=== PATIENT | male | born 2000 | race Caucasian/White ===

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

== ENCOUNTER 2019-01-12 20:59 | Emergency (ER) | payer OTHER ==
[~2019-01-12] VITALS: Ht 177.8 cm; Wt 72.6 kg
[2019-01-12 21:51] LABS: ABSOLUTE NEUTROPHILS 4.4 thou/uL (1.4-8.2); EOSINOPHILS 1.4 % (0.0-3.0); HEMATOCRIT 46.3 % (42.0-52.0); HEMOGLOBIN 16.2 gm/dL (14.0-18.0); LYMPHOCYTES 36.1 % (24.0-44.0); MCH 32.6 pg (26.0-34.0); MCV 93.2 fL (80.0-100.0); MONOCYTES 5.2 % (1.0-8.0); PLATELET COUNT 268 thou/uL (150-400); POLYS 56.3 % (36.0-66.0); RBC 4.97 mil/uL (4.50-6.00); RDW 12.7 % (10.5-14.5); WBC 7.8 thou/uL (4.0-11.0)
[2019-01-12] MEDS ORDERED: HUMALOG100 UNIT/1 SUBQ (21:51)
[2019-01-12 21:57] LABS: CALCIUM 9.4 mg/dL (8.5-10.1); CREATININE 0.9 mg/dL (0.7-1.3); POTASSIUM 3.3 mmol/L (3.5-5.1)
[2019-01-12 22:03] LABS: TOTAL BILIRUBIN 0.4 mg/dL (<0.1-1.0)
[2019-01-12 22:21] VITALS: BP 123/77
--- NOTE | 2019-01-14 16:49 | EKG ---
[address] [address] [place] [address] ELECTROCARDIOGRAM REPORT Name: MILENAMARCELLO SOPHIA Room #: DEP RAGINI Mccormack#: [id number] Admission: 01/12/19 Attend Phys: Discharge: 01/12/19 Date of : [birth year] Report #: [id number] THIS REPORT FOR: //name// [facility] ED Test Date: 2019-01-12 Test Time: 21:17:01 Pat Name: MARCELLO ABBOTT Department: Room: Gender: Referral Nurse: : 2000 Requested By: Juan Sosa Order Number: [id number] MD: Carrington Dahl Measurements Intervals [place] Rate: 84 P: 87 WV: 146 QRS: 76 QRSD: 89 T: 44 QT: 352 QTc: 417 Interpretive Statements Sinus rhythm RSR' in V1 or V2, probably normal variant No previous ECG available for comparison Electronically Signed On 01-14-2019 16:49:06 [employer] by Carrington Dahl [email or web address] <ELECTRONICALLY SIGNED> By: Carrington Dahl MD, [facility] 01/14/19 [id number] Carrington Dahl MD, FACC /EPI
== END 2019-01-12 22:28 | disposition home or self-care (01) ==
LOC: ER 20:59
PROVIDERS: Emergency Medicine
DX: E10.65 Type 1 diabetes mellitus with hyperglycemia (principal); R55 Syncope and collapse; M25.562 Pain in left knee; J45.909 Unspecified asthma, uncomplicated; F07.81 Postconcussional syndrome; F90.9 Attention-deficit hyperactivity disorder, unspecified type

== ENCOUNTER 2019-05-11 16:18 | Inpatient (IN) | payer OTHER ==
[~2019-05-11] VITALS: Ht 180.3 cm; Wt 73.0 kg
[2019-05-11] VITALS (9 sets, daily range): BP systolic 102–148; BP diastolic 42–92
[~2019-05-11 16:18] MED LIST changes: +HUMALOG100 UNIT/1 SUBQ
[2019-05-11] MEDS ORDERED: TRESIBA100 UNIT/1 SUBQ (16:40)
[2019-05-11 16:58] LABS: ABSOLUTE NEUTROPHILS 2.9 thou/uL (1.4-8.2); BASOPHILS 0.7 % (0.0-2.0); EOSINOPHILS 1.2 % (0.0-3.0); HEMATOCRIT 48.4 % (42.0-52.0); HEMOGLOBIN 16.5 gm/dL (14.0-18.0); LYMPHOCYTES 45.3 % (24.0-44.0); MCH 31.5 pg (26.0-34.0); MCHC 34.1 g/dL (28.0-37.0); MCV 92.5 fL (80.0-100.0); MONOCYTES 5.2 % (1.0-8.0); PLATELET COUNT 266 thou/uL (150-400); POLYS 47.6 % (36.0-66.0); RBC 5.23 mil/uL (4.50-6.00); RDW 12.1 % (10.5-14.5); WBC 6.1 thou/uL (4.0-11.0)
[2019-05-11 17:09] LABS: CALCIUM 8.7 mg/dL (8.5-10.1); CREATININE 1.2 mg/dL (0.7-1.3)
[2019-05-11 17:15] LABS: TOTAL BILIRUBIN 0.5 mg/dL (<0.1-1.0); TOTAL PROTEIN 7.7 g/dL (6.4-8.2)
[2019-05-11 17:21] LABS: HCO3 10.3 mmol/L (22.0-26.0); PCO2 VENOUS 26.9 mmHg (41.0-51.0); PO2 VENOUS 52.8 mmHg (35.0-45.0)
[2019-05-11 17:30] LABS: URINE BLOOD TRACE (Negative); URINE CLARITY CLEAR; URINE COLOR YELLOW; URINE GLUCOSE-RANDOM* 2+ (Negative); URINE KETONES 3+ (Negative); URINE LEUKOCYTES-REFLEX NEGATIVE (Negative); URINE NITRITE-REFLEX NEGATIVE (Negative); URINE PROTEIN (DIPSTICK) TRACE (Negative); URINE SPECIFIC GRAVITY >= 1.030 (1.005-1.035); URINE UROBILINOGEN 0.2 E.U./dl (0.2-1.0)
[2019-05-11 17:37] LABS: CALCIUM 8.9 mg/dL (8.5-10.1); CREATININE 1.2 mg/dL (0.7-1.3)
[2019-05-11 17:39] LABS: ICTOTEST (BILI CONFIRMATORY) Negative (Negative); URINE BILIRUBIN NEGATIVE (Negative)
[2019-05-11 17:41] LABS: MAGNESIUM 1.5 mg/dL (1.8-2.4); PHOSPHORUS 2.4 mg/dL (2.5-4.9)
--- NOTE | 2019-05-11 19:20 | NUR ---
PATIENT ARRIVED TO UNIT BY ED NURSE AND STUDENT. PATIENT WALKED TO BED. POTASSIUM GOING AND FLUIDS GOING WIDE OPEN PER ED DR ORDERS. DR. WAYNE PAGED FOR DKA ORDERS. ENDOCRINE CONSULTED. PATIENT GLUCOSE IS 129 AT THIS TIME. FAMILY EDUCATED ABPUT ICU PROTOCOLS AND RULES. FAMILY EXPRESSING UNDERSTANDING. REPORT GIVEN TO PROCUREMENT SPECIALIST.
[2019-05-11 21:35] LABS: CALCIUM 7.5 mg/dL (8.5-10.1); CREATININE 0.9 mg/dL (0.7-1.3); MAGNESIUM 1.6 mg/dL (1.8-2.4); PHOSPHORUS 1.4 mg/dL (2.5-4.9); POTASSIUM 3.1 mmol/L (3.5-5.1)
[2019-05-12] VITALS (8 sets, daily range): BP systolic 110–125; BP diastolic 54–80
[2019-05-12 01:24] LABS: HEMATOCRIT 40.8 % (42.0-52.0); MCH 31.1 pg (26.0-34.0); MCHC 34.2 g/dL (28.0-37.0); MCV 90.8 fL (80.0-100.0); RBC 4.49 mil/uL (4.50-6.00); RDW 12.2 % (10.5-14.5); WBC 5.6 thou/uL (4.0-11.0)
[2019-05-12 01:36] LABS: ALBUMIN 2.7 g/dL (3.4-5.0); CALCIUM 6.9 mg/dL (8.5-10.1); CREATININE 0.9 mg/dL (0.7-1.3); MAGNESIUM 1.8 mg/dL (1.8-2.4); POTASSIUM 3.1 mmol/L (3.5-5.1)
[2019-05-12 06:09] LABS: ALBUMIN 2.9 g/dL (3.4-5.0); CALCIUM 7.1 mg/dL (8.5-10.1); CREATININE 0.8 mg/dL (0.7-1.3); MAGNESIUM 1.8 mg/dL (1.8-2.4); PHOSPHORUS 2.1 mg/dL (2.5-4.9); POTASSIUM 3.6 mmol/L (3.5-5.1)
--- NOTE | 2019-05-12 08:20 | NUR ---
chart review, cm consulted. pt up in bed with mom sherice and his sig other at bedside. intro to cm and dcp. pt reported independent, no medical equip. has dm supplies at home, going to start working soon."/pt. per mom " just moved for tx and going to have to change insurance, in process of getting new endocrine dr and medical dr. he will need scripts for his insulin and medication so can refill before he will be out of insurance for little bit and don't want to run out of his medication"/sherice. will cont following as needed for dc needs.
--- NOTE | 2019-05-12 09:12 | NUR ---
DR. FISHER AT BEDSIDE SPEAKING WITH PATIENT AND MOTHER ABOUT POC.
--- NOTE | 2019-05-12 20:44 | NUR ---
Received patient from ICU this afternoon, transferred to room safely. A+Ox4. On room air. Vital signs stable. On carb controlled diet- tolerating well; no nausea, no vomiting and no abdominal pain noted. On blood sugar monitoring- taken and recorded accordingly, with sliding scale insulin prescribed. Up ad urszula, independent with ADLs. No skin issues. With SL at R AC and L AC. IVF infused on L AC as ordered. Pt visited by friend this afternoon. No complaints of pain made, able to walk around the hallway. To continue monitoring patient.
[2019-05-13 00:08] LABS: GLYCOHEMOGLOBIN (HGB A1C) 11.7 % (4.8-5.6)
--- NOTE | 2019-05-13 03:59 | NUR ---
PATIENT AOX4 MAKES NEEDS KNOWN. PATIENT DENIED PAIN OR DISCOMFORT. PATIENT AMBULATES WITH STEADY GAITS. PATIENT IN BED ASLEEP AT THIS TIME BREATHING REGULAR AND UNLABOURED.
[2019-05-13 07:57] VITALS: BP 125/82
--- NOTE | 2019-05-13 08:08 | HC ---
[facility] [place] [address] CONSULTATION Name: MARCELLO ABBOTT Room #: 455-P [facility] [place] M.R.#: [id number] Admission: 05/11/19 Attend Phys: Josiah Capps MD Discharge: Date of : 89 Report #: [id number] THIS REPORT FOR: cc: JHONATHAN Katz family physician/PCP JHONATHAN Katz family physician/PCP Lior Francois MD ~ CC: Josiah RING physician/PCP DATE OF SERVICE: 05/12/2019 ENDOCRINE CONSULTATION NOTE CONSULTING PHYSICIAN: Dr. Capps. REASON FOR CONSULTATION: DKA, uncontrolled type 1 diabetes mellitus. HISTORY OF PRESENT ILLNESS: This is a 18-year-old male patient whose medical background is significant for type 1 diabetes mellitus diagnosed at the age of 12 years. The patient presented to the ER following progressive issues with nausea, vomiting and limited p.o. intake for the few days preceding admission. He notes that he is typically maintained on a combination of Tresiba insulin at 32 units daily in addition to Humalog insulin taken as per carb ratio of 1:8. He notes that his blood glucose values typically run in the 150-200 mg/dL range. However, for reasons that he could not pinpoint, he notes that his blood glucose values have been fluctuating widely over the past month, but without hypoglycemia. On arrival to the ER, the patient was found to be in diabetic ketoacidosis and was admitted to the ICU for further care and monitoring. The patient is not aware of difficulties pertaining to diabetic retinopathy, nephropathy, or neuropathy. He is not known to be hypertensive for hyperlipidemic. The patient has had DKA at least twice in the past. REVIEW OF SYSTEMS: CONSTITUTIONAL: Fatigue, tiredness, but not fever or chills or body weight changes. HEENT: Negative for sore throat, sinus problems, earache. PULMONARY: Negative for shortness of breath, cough or hemoptysis. CARDIAC: Negative for chest pain, palpitations, syncope or presyncope. GASTROINTESTINAL: Noted for abdominal discomfort, nausea, vomiting as noted above. NEUROLOGY: Negative for loss of consciousness, seizure activity or frequent severe headaches. MUSCULOSKELETAL: Diffuse muscle aches and pains that are improved now. [facility] [address] [place] [address] CONSULTATION Name: MARCELLO ABBOTT Room #: 455-P [facility] [place] .R.#: [id number] Admission: 05/11/19 Attend Phys: Josiah Capps MD Discharge: Date of : 89 Report #: [id number] PSYCH: Negative for delusions, hallucinations or other abnormalities. His review of systems otherwise noncontributory other than what is mentioned in HPI. PAST MEDICAL HISTORY: 1. Type 1 diabetes mellitus. 2. Diabetic ketoacidosis in the past. 3. Attention deficit hyperactivity disorder. OUTPATIENT MEDICATIONS: Include Tresiba insulin 32 units daily, Humalog insulin taken as per carb ratio of 1:8. ALLERGIES: CEFZIL. FAMILY HISTORY: Noncontributory. SOCIAL HISTORY: The patient smokes daily. Does not drink alcohol or use illicit drugs. He had moved recently from [place], [place]. PHYSICAL EXAMINATION: GENERAL: Young male patient who is not in apparent pain or distress. VITAL SIGNS: Blood pressure is 110/68 mmHg, heart rate is 81 beats per minute, respirations 16 per minute, temperature 36.5 Celsius. CONSTITUTIONAL: The patient is lying in bed, seems comfortable, not in apparent distress. HEENT: Anicteric sclerae. Intact extraocular motions. NECK: Supple without JVD, carotid bruits or lymphadenopathy. I do not appreciate thyromegaly. CHEST: Mostly clear to auscultation with good air entry bilaterally. No wheeze or crackles with resonant percussion noted over both lung naylor. HEART: Regular rate and rhythm without murmurs or gallops. ABDOMEN: Soft, lax. No guarding. Active bowel sounds. EXTREMITIES: Lower extremity examination is negative for ankle edema, skin breaks or ulcerations. Pedal pulses are appreciated. Sensation to light touch is largely intact bilaterally. PSYCH: Normal mood and affect, interactive, appropriate. LABORATORY DATA: On arrival to the ER, the patient looks glucose was 329, but over the past 12 hours he had managed to keep mostly under 160 mg/dL on IV insulin therapy. Sodium 138, potassium 3.6, chloride 106, CO2 of 20; anion gap 12, was 24 on presentation; creatinine 0.8, AST 9, total bilirubin 0.5, calcium 7.1, phosphorus 2.1, magnesium 1.8, alkaline phosphatase 111, ALT 22, total protein 7.7, albumin 2.9, EGFR 125. White blood count 5.6, hemoglobin 14, hematocrit [address] [address] CONSULTATION Name: MARCELLO ABBOTT Room #: 455-P [facility] IN M.R.#: [id number] Admission: 05/11/19 Attend Phys: Josiah Capps MD Discharge: Date of : 89 Report #: [id number] 40.8, platelets 230. Positive 3 urine ketones, pH 7.202, pCO2 of 26.9, bicarb 10.3, pO2 of 52.8. Hemoglobin A1c is processing. ASSESSMENT AND PLAN: 1. Diabetic ketoacidosis. The patient's clinical presentation, laboratory data in the form of wide anion gap metabolic acidosis are consistent with diabetic ketoacidosis. The patient was managed successfully with intravenous insulin therapy and intravenous fluid support as per the [facility] diabetic ketoacidosis protocol. Based on his progression and the correction of the associated laboratory abnormalities, he has resolved his diabetic ketoacidosis at this point in time. The patient will be switched to subcutaneous insulin therapy as will be pointed below. 2. Type 1 diabetes mellitus. The patient seems to have an uncontrolled baseline for type 1 diabetes mellitus, although he did not grow any known diabetic complications. I will obtain a hemoglobin A1c to better assess his most recent level of control. The patient was counseled at length about the importance of achieving and maintaining adequate glycemic control to avoid diabetic complications. Based on his documented intravenous insulin needs, the patient is estimated to need a total of 48 units daily. This will be applied in the form of Lantus insulin 24 units daily in addition to Humalog 8 units t.i.d. a.c. while supporting him with low intensity Humalog supplemental scale to be utilized as we monitor his blood glucose values a.c. and at bedtime. The patient was counseled about methodologies that could assist in better therapeutic adherence and outcome in the future including insulin pump therapy. Outpatient periodic followup will be necessary. He was counseled about the importance of routine eye and foot care. I appreciate this consultation by Dr. Capps. <ELECTRONICALLY SIGNED> By: Lior Francois MD 05/13/19 0808 [id number] 11 MD arsh Santo
[2019-05-13] MEDS ORDERED: HUMALOG100 UNIT/1 SUBQ (09:08)
[2019-05-13] MEDS ORDERED: TRESIBA100 UNIT/1 SUBQ (09:08)
[2019-05-13 12:04] VITALS: BP 125/82
--- NOTE | 2019-05-13 15:02 | NUR ---
CARE TEAM INDICATED THAT PT IS MEDICALLY STABLE TO DISCHARGE HOME THIS DAY. PT WAS GIVEN SCRIPTS FOR ALL HIS MEDS SO HE MAY FILL THEM. NO OTHER CM INTERVENTION INDICATED. CASE CLOSED.
== END 2019-05-13 14:19 | disposition home or self-care (01) | DRG 639 ==
LOC: ER 16:18 → ICU 17:41 → EROBS 17:41 → ICU 18:31 → 4W 05-12 14:17
PROVIDERS: Internal Medicine; Student in an Organized Health Care Education/Training Program; ADMIT Hospitalist
DX: E10.10 Type 1 diabetes mellitus with ketoacidosis without coma (principal); J45.909 Unspecified asthma, uncomplicated; E87.6 Hypokalemia; F17.210 Nicotine dependence, cigarettes, uncomplicated; Z79.899 Other long term (current) drug therapy; Z88.8 Allergy status to other drugs, medicaments and biological substances
CPT/HCPCS: 10040; 10078

== ENCOUNTER 2020-01-12 16:46 | Emergency (ER) | payer OTHER ==
[~2020-01-12] VITALS: Ht 177.8 cm; Wt 74.8 kg
[~2020-01-12 16:46] MED LIST changes: +TRESIBA100 UNIT/1 SUBQ
[2020-01-12 17:25] LABS: ABSOLUTE NEUTROPHILS 5.4 thou/uL (1.4-8.2); BASOPHILS 0.5 % (0.0-2.0); HEMATOCRIT 43.7 % (42.0-52.0); HEMOGLOBIN 15.3 gm/dL (14.0-18.0); LYMPHOCYTES 17.6 % (24.0-44.0); MCH 31.9 pg (26.0-34.0); MCHC 35.1 g/dL (28.0-37.0); MCV 90.7 fL (80.0-100.0); MONOCYTES 8.9 % (1.0-8.0); PLATELET COUNT 311 thou/uL (150-400); RBC 4.82 mil/uL (4.50-6.00); RDW 12.2 % (10.5-14.5); WBC 7.6 thou/uL (4.0-11.0)
[2020-01-12 17:34] LABS: CALCIUM 8.4 mg/dL (8.5-10.1); CREATININE 1.4 mg/dL (0.7-1.3); POTASSIUM 3.5 mmol/L (3.5-5.1)
[2020-01-12 17:39] LABS: ALBUMIN 3.9 g/dL (3.4-5.0); DIRECT BILIRUBIN 0.1 mg/dL (<0.1-0.2); TOTAL BILIRUBIN 0.5 mg/dL (0.2-1.0); TOTAL PROTEIN 7.3 g/dL (6.4-8.2)
[2020-01-12 18:02] LABS: URINE BILIRUBIN 2+ (Negative); URINE BLOOD NEGATIVE (Negative); URINE CLARITY CLEAR; URINE COLOR YELLOW; URINE GLUCOSE-RANDOM* 2+ (Negative); URINE KETONES 3+ (Negative); URINE LEUKOCYTES-REFLEX NEGATIVE (Negative); URINE NITRITE-REFLEX NEGATIVE (Negative); URINE PROTEIN (DIPSTICK) TRACE (Negative); URINE SPECIFIC GRAVITY >= 1.030 (1.005-1.035); URINE UROBILINOGEN 0.2 E.U./dl (0.2-1.0)
[2020-01-12 18:04] LABS: ICTOTEST (BILI CONFIRMATORY) Negative (Negative)
[2020-01-12] MEDS ORDERED: ONDANSETRON HCL4 M2 PO (18:53)
[2020-01-12 19:25] VITALS: BP 122/74
== END 2020-01-12 19:25 | disposition home or self-care (01) ==
LOC: ER 16:46
PROVIDERS: Nurse Practitioner
DX: K52.9 Noninfective gastroenteritis and colitis, unspecified (principal); M79.10 Myalgia, unspecified site; R11.2 Nausea with vomiting, unspecified; Z20.828 Contact with and (suspected) exposure to other viral communicable diseases; J45.909 Unspecified asthma, uncomplicated; E10.9 Type 1 diabetes mellitus without complications; F90.9 Attention-deficit hyperactivity disorder, unspecified type; F17.210 Nicotine dependence, cigarettes, uncomplicated; Z79.4 Long term (current) use of insulin; Z88.1 Allergy status to other antibiotic agents

== ENCOUNTER 2020-01-13 20:50 | Emergency (ER) | payer OTHER ==
[~2020-01-13 20:50] MED LIST changes: +ONDANSETRON HCL4 M2 PO
== END 2020-01-13 22:11 | disposition left against medical advice (07) ==
LOC: ER 20:50
DX: K92.1 Melena (principal); R10.9 Unspecified abdominal pain; Z53.21 Procedure and treatment not carried out due to patient leaving prior to being seen by health care provider